=== PATIENT | female | born 1980 | race Two or more races ===

== ENCOUNTER 2018-07-29 00:34 | Emergency (ER) | payer OTHER ==
[~2018-07-29] VITALS: Ht 167.6 cm; Wt 79.4 kg
[2018-07-29] MEDS ORDERED: PRENATAL + DHA1 EAC1 PO (00:46)
[2018-07-29] MEDS ORDERED: FOLIC ACID0.4 MG PO (00:46)
== END 2018-07-29 04:12 | disposition home or self-care (01) ==
LOC: ER 00:34
DX: J06.9 Acute upper respiratory infection, unspecified (principal)